=== PATIENT | female | born 1985 ===

== ENCOUNTER 2018-09-08 15:05 | Emergency (ER) | payer OTHER ==
[2018-09-08 15:28] VITALS: BP 109/70; PULSE 70; RESP 18; TEMP 97.9; O2SAT 100
--- NOTE | 2018-09-08 20:15 | ED PDOC ---
HPI: Abdomen Time Seen by Provider: 09/08/18 18:45 Chief Complaint (Nursing): GI Problem Chief Complaint (Provider): GI Problem History Per: Patient History/Exam Limitations: no limitations Onset/Duration Of Symptoms: Days (x1 week ) Current Symptoms Are (Timing): Constant Location Of Pain/Discomfort: Epigastric Associated Symptoms: Nausea Additional Complaint(s): Eloise Alcantar is a 32 year old female with no significant past medical history, who presents to the emergency department with x1 week of nausea and con stant epigastric abdominal pain. She states her epigastric pain developed yesterday and is unrelated to food. Patient has not taken any medications for it. Patient states her last menstrual period was on August 12 and that she may be . She reports to be having breast tenderness and intermittent nausea and only able to eat plain pasta. Patient does admit to having urinary frequency but denies having any vomiting, diarrhea, sore throat, ear pain, fever, chills, abnormal vaginal discharge, dysuria, hx of STDs. PMD: No provider Last Menstral Period: 08/12/18 : 1 Para: 1 Past Medical History Reviewed: Historical Data, Nursing Documentation, Vital Signs Vital Signs: Last Vital Signs Temp 97.9 F 09/08/18 15:26 Pulse 70 09/08/18 15:26 Resp 18 09/08/18 15:26 BP 109/70 09/08/18 15:26 Pulse Ox 100 09/08/18 15:26 - Medical History PMH: No Chronic Diseases - Surgical History Surgical History: No Surg Hx - Family History Family History: States: Unknown Family Hx - Social History Current smoker - smoking cessation education provided: Yes (3 cigs/day x 7 yrs, stopped 1 week ago) Alcohol: None Drugs: Denies - Home Medications Home Medications: Ambulatory Orders Medication Instructions Recorded Famotidine [Pepcid] 20 mg PO DAILY PRN 7 Days tab 09/08/18 - Allergies Allergies/Adverse Reactions: Allergies Allergy/AdvReac Type Severity Reaction Status Date / Time No Known Allergies Allergy Verified 09/08/18 15:26 Review of Systems ROS Statement: Except As Marked, All Systems Reviewed And Found Negative Constitutional: Negative for: Fever, Chills ENT: Negative for: Ear Pain, Throat Pain Gastrointestinal: Positive for: Nausea, Abdominal Pain. Negative for: Vomiting, Diarrhea Genitourinary Female: Positive for: Frequency. Negative for: Dysuria, Vaginal Discharge Physical Exam - Reviewed Nursing Documentation Reviewed: Yes Vital Signs Reviewed: Yes - Physical Exam Appears: Positive for: Well (comfortable) Head Exam: Positive for: ATRAUMATIC Eye Exam: Positive for: Normal appearance, EOMI, PERRL ENT: Positive for: Normal ENT Inspection Cardiovascular/Chest: Positive for: Regular Rate, Rhythm. Negative for: Murmur Respiratory: Positive for: Normal Breath Sounds. Negative for: Respiratory Distress Gastrointestinal/Abdominal: Positive for: Soft, Tenderness (mild pain on palpation to epigastric and RLQ area). Negative for: Distended, Rebound, Other (periumbilical pain) Pelvic Exam: Positive for: External Exam Normal, No Cerv. Motion Tender. Negative for: Discharge, Tender Adnexa, Other (external inspection show no abnomalities noted ) Neurologic/Psych: Positive for: Alert, Oriented (x3) - ECG O2 Sat by Pulse Oximetry: 100 (RA) Pulse Ox Interpretation: Normal Medical Decision Making Medical Decision Making: Initial Time: 19:08 Initial Plan: --ED urine dip --urine Test test +. --Beta-HCG quantitative -- 1st trimester ob TV US Time: 21:04 Ultrasound findings: Impression: Single live intrauterine gestation of approximately 8 weeks and 1 day. Close clinical correlation and follow-up study recommended. Beta-HC Urine dip: Negative nitrates or LE Ok for d/c home with women's health f/u and prescription for Pepcid for continued epigastric pain. Scribe Attestation: Documented by Je Son, acting as a scribe for Karine Rodriges PA-C. Provider Scribe Attestation: All medical record entries made by the Scribe were at my direction and personally dictated by me. I have reviewed the chart and agree that the record accurately reflects my personal performance of the history, physical exam, medical decision making, and the department course for this patient. I have also personally directed, reviewed, and agree with the discharge instructions and di sposition. Disposition - Clinical Impression Clinical Impression: Abdominal pain, - Patient ED Disposition Is Patient to be Admitted: No Counseled Patient/Family Regarding: Studies Performed, Diagnosis, Need For Followup, Rx Given - Disposition [facility]errals[facility] Disposition: Routine/Home Disposition Time: 21:55 Condition: STABLE Additional Instructions: F/u with primary care provider for care within the next 2 weeks. Prescriptions: Famotidine [Pepcid] 20 mg PO DAILY PRN 7 Days tab PRN Reason: Gi Distress Instructions: Care Forms: [facility] (Lebanese) Print Language: CITIZEN OF [place]
--- NOTE | 2018-09-09 13:49 | US ---
Date of service: 09/08/2018 Indication: + urine , abdominal pain Comparison: None available Technique: Transvaginal pelvic ultrasound. Findings: Uterus measures approximately 8.0 x 5.9 x 6.1 cm. Retroverted. Cervix length measures approximately 3.3 cm. There is a single intrauterine fetus present. 3 mm yolk sac. The gestational sac measures 3.3 cm and is compatible with a gestational age of 8 weeks 2 days. The crown-rump length measures 1.6 cm and is compatible with a gestational age of 8 weeks 0 days. There is heart motion which measured 161 BPM. The right ovary measures 2.2 x 1.7 x 2.7 cm. The left ovary measures 3.7 x 2.1 x 3.4 cm. Flow was demonstrated to both ovaries. Impression: Live single intrauterine with estimated gestational age 8 weeks 2 days by gestational sac calculation and 8 weeks 0 days by crown-rump length calculation. heart rate 161 bpm. Advise an anomaly screen at 16-18 weeks gestational age Preliminary impression was provided by [employer].
== END 2018-09-09 00:36 | disposition home or self-care (01) ==
LOC: H.ER 15:05
DX: O26.891 Other specified pregnancy related conditions, first trimester (principal); Z3A.08 8 weeks gestation of pregnancy; O99.331 Smoking (tobacco) complicating pregnancy, first trimester; F17.200 Nicotine dependence, unspecified, uncomplicated